=== PATIENT | female | born 1955 | race Caucasian/White ===

== ENCOUNTER 2019-02-26 09:02 | Day surgery (SDC) | payer MEDICARE, MEDICAID ==
[2019-02-26] MEDS ORDERED: FENTAnyl 50 MCG/ML VIAL (09:52)
[2019-02-26] MEDS ORDERED: PROPOFOL 20 ML ×2 (09:52→10:46)
[2019-02-26] MEDS ORDERED: ONDANSETRON 4 MG INJ IV (10:00)
[2019-02-26] MEDS ORDERED: FENTAnyl 50 MCG/ML VIAL IV (10:00)
== END 2019-02-26 12:58 | disposition home or self-care (01) ==
LOC: GIL 09:02
DX: Z12.11 Encounter for screening for malignant neoplasm of colon (principal); K64.8 Other hemorrhoids; D12.3 Benign neoplasm of transverse colon; I10 Essential (primary) hypertension; E11.9 Type 2 diabetes mellitus without complications
CPT/HCPCS: 45385; 82962; 88305